=== PATIENT | female | born 1975 | race African-American/Black ===

== ENCOUNTER 2019-10-20 05:59 | Emergency (ER) | payer BC, OTHER ==
[2019-10-20 06:56] VITALS: BP 128/87; PULSE 66; TEMP 97.9; BMI 31.3
--- NOTE | 2019-10-20 07:35 | PDOC ---
Attending Attestation - Resident Resident Name: Ayanna Mills - HPI HPI: 10/23/19 06:24 Pt presents to the Ed complaining of atraumatic pain in the plantar surface of the R foot. Denies other complaints. 10/23/19 06:30 - Physicial Exam PE: 10/23/19 06:30 Agree with resident exam. + tenderness in the plantar fascia of the R foot without erythema, ecchymosis or deformity. - Medical Decision Making 10/23/19 06:31 Pt presents to the Ed complaining of atraumatic pain in the plantar surface of her R foot consistent with plantar fascitis. Will treat with NSAIDs and discharge home. Discharge - Discharge Information Problems reviewed: Yes Clinical Impression/Diagnosis: Right ankle pain Qualifiers: Chronicity: acute Qualified Code(s): M25.571 - Pain in right ankle and joints of right foot Condition: Fair Disposition: HOME - Follow up/Referral Referrals: Eben Santiago MD [Staff Physician] - - Patient Discharge Instructions Additional Instructions: Continue taking ibuprofen and tylenol for the pain. Follow up with your PCP for further monitoring and workup of your condition. Follow up with the orthopedic doctor we have referred. Return to the ED if your condition worsen and/or you experience fevers, chills, numbness, tingling, cold toes, or inability to move your toes. - Post Discharge Activity
--- NOTE | 2019-10-20 08:21 | PDOC ---
History of Present Illness - General Chief Complaint: Pain, Acute Stated Complaint: LEG PAIN Time Seen by Provider: 10/20/19 07:35 - History of Present Illness Initial Comments: 44 yo female with PMH of htn and arthritis presents with right foot pain. Pt has been having 2 weeks of right foot swelling and sharp pain in the heel and plantar fascia. Pain is worse in the morning and worse with walking. 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 She denies any trauma, new activity, new shoes. She has been given ibuprofen by her PCP with only mild relief. Past History - Medical History Allergies/Adverse Reactions: Allergies Allergy/AdvReac Type Severity Reaction Status Date / Time No Known Allergies Allergy Verified 10/20/19 06:57 Home Medications: Ambulatory Orders Acetaminophen W/ Codeine #3 [Tylenol # 3 -] 1 tab PO Q4H PRN #30 tablet 04/18/13 Valacyclovir HCl [Valtrex] 1,000 mg PO TID #21 tablet 04/18/13 HTN: Yes - Reproductive History Is Patient Now?: No - Psycho-Social/Smoking History Smoking History: Never smoked Have you smoked in the past 12 months: No Information on smoking cessation initiated: No - Substance Abuse Hx (Audit-C & DAST Scrn) How often the patient has a drink containing alcohol: Never Score: In Men: 4 or > Positive; In Women: 3 or > Positive: 0 Screen Result (Pos requires Nsg. Audit-10AR): Negative In the last yr the pt used illegal drug/Rx for NonMed reason: No Score: Yes response is considered Positive: 0 Screen Result (Positive result requires Nsg. DAST-10): Negative Review of Systems - Review of Systems Able to Perform ROS?: Yes Constitutional: No: Chills, Fever HEENTM: No: Recent change in vision, Nose Congestion Respiratory: No: Cough, Orthopnea, Shortness of Breath Cardiac (ROS): No: Chest Pain, Palpitations ABD/GI: No: Diarrhea, Nausea, Vomiting : No: Dysuria, Flank Pain Musculoskeletal: Yes: Other (foot pain/stiffness). No: Muscle Pain Integumentary: No: Erythema, Flushing, Rash Neurological: No: Headache, Numbness, Paresthesia, Tingling, Weakness Psychiatric: No: Anxiety, Depression, Mood Swings Endocrine: No: Intolerance to Cold, Intolerance to Heat *Physical Exam - Vital Signs Last Vital Signs Temp Pulse Resp BP Pulse Ox 97.9 F 66 20 128/87 100 10/20/19 06:00 10/20/19 06:00 10/20/19 06:00 10/20/19 06:00 10/20/19 06:00 - Physical Exam General Appearance: Yes: Appropriately Dressed. No: Apparent Distress HEENT: positive: EOMI, Normal Voice Respiratory/Chest: positive: Lungs Clear, Normal Breath Sounds. negative: Respiratory Distress Cardiovascular: positive: Regular Rhythm, Regular Rate, S1, S2 Gastrointestinal/Abdominal: positive: Flat, Soft. negative: Tender Musculoskeletal: negative: CVA Tenderness Extremity: positive: Other (right foot swelling ). negative: Coldness, Cyanosis, Calf Tenderness, Erythema Integumentary: positive: Normal Color, Dry, Warm Neurologic: positive: Fully Oriented, Alert, Normal Response, Motor Strength 5/5. negative: Numbness, Sensory Deficit Medical Decision Making - Medical Decision Making 44 yo female with PMH of htn and arthritis presents with 2 week hx of right foot swelling and plantar pain. Differential: plantar fascitis, heel spurs, gout. X-Ray negative. Pt stable and able to bear weight. Ready for discharge and given ortho follow up. Discharge - Discharge Information Problems reviewed: Yes Clinical Impression/Diagnosis: Right ankle pain Qualifiers: Chronicity: acute Qualified Code(s): M25.571 - Pain in right ankle and joints of right foot Condition: Fair Disposition: HOME - Admission No - Follow up/Referral Referrals: Eben Santiago MD [Staff Physician] - - Patient Discharge Instructions Additional Instructions: Continue taking ibuprofen and tylenol for the pain. Follow up with your PCP for further monitoring and workup of your condition. Follow up with the orthopedic doctor we have referred. Return to the ED if your condition worsen and/or you experience fevers, chills, numbness, tingling, cold toes, or inability to move your toes. - Post Discharge Activity
--- NOTE | 2019-10-20 09:03 | PDOC ---
*Physical Exam - Vital Signs Last Vital Signs Temp Pulse Resp BP Pulse Ox 97.9 F 66 20 128/87 100 10/20/19 06:00 10/20/19 06:00 10/20/19 06:00 10/20/19 06:00 10/20/19 06:00 ED Treatment Course - RADIOLOGY Radiology Studies Ordered: Category Date Time Status ANKLE & FOOT-RIGHT* [RAD] Stat Radiology 10/20/19 08:32 Taken Discharge - Discharge Information Problems reviewed: Yes Clinical Impression/Diagnosis: Right ankle pain Qualifiers: Chronicity: acute Qualified Code(s): M25.571 - Pain in right ankle and joints of right foot Condition: Fair - Follow up/Referral Referrals: Eben Santiago MD [Staff Physician] - - Patient Discharge Instructions Additional Instructions: Continue taking ibuprofen and tylenol for the pain. Follow up with your PCP for further monitoring and workup of your condition. Follow up with the orthopedic doctor we have referred. Return to the ED if your condition worsen and/or you experience fevers, chills, numbness, tingling, cold toes, or inability to move your toes. - Post Discharge Activity
== END 2019-10-20 09:03 | disposition home or self-care (01) ==
LOC: JER 05:59
DX: M25.571 Pain in right ankle and joints of right foot (principal)
CPT/HCPCS: 73610-TC-RT-FY; 73630-TC-RT-FY; 99283-25

== ENCOUNTER 2022-06-04 05:57 | Emergency (ER) | payer BC ==
[2022-06-04 06:49] VITALS: BP 163/98; PULSE 50; RESP 18; TEMP 98.2; BMI 28.1
[2022-06-04] MEDS ORDERED: ACETAMINOPHEN 500 MG TABLET (FP) PO ONE (07:23)
[2022-06-04] MEDS ORDERED: diazePAM 2 MG TABLET PO PRN (07:23)
[2022-06-04] MEDS ORDERED: diazePAM 2 MG TABLET ONE (07:25)
[2022-06-04] MEDS ORDERED: ACETAMINOPHEN 325 MG TABLET (FP) ONE (07:25)
[2022-06-04] MEDS ORDERED: diazePAM 2 MG TABLET PO ONE (07:34)
[2022-06-04] MEDS ORDERED: KETOROLAC TROMETHAMINE 15 MG/ML VIAL IM ONE (08:01)
[2022-06-04] MEDS ORDERED: KETOROLAC TROMETHAMINE 15 MG/ML VIAL ONE (08:09)
== END 2022-06-04 09:03 | disposition home or self-care (01) ==
LOC: JER 05:57
DX: M54.2 Cervicalgia (principal)
CPT/HCPCS: 84703; 93005; 93010; 99284-25